=== PATIENT | male | born 1940 | race Caucasian/White ===

== ENCOUNTER 2016-05-18 07:38 | Day surgery (SDC) | payer OTHER ==
[2016-05-15 10:59] LABS: BASOPHILS 0.2 %; BASOPHILS ABSOLUTE 0.02 10/3/uL (0.0-0.16); EOSINOPHILS 1.1 %; EOSINOPHILS ABSOLUTE 0.09 10/3/uL (0.0-0.53); HEMATOCRIT 42.7 % (40.0-51.0); HEMOGLOBIN 13.9 g/dL (13.6-17.8); IMMATURE GRANULOCYTES 0.2 %; IMMATURE GRANULOCYTES ABSOLUTE 0.02 10/3/uL (0.0-0.11); LYMPHOCYTES 20.9 %; MEAN CORPUS HGB CONC 32.6 g/dL (32.0-36.0); MEAN CORPUSCULAR HEMOGLOB 32.7 pg (26.0-34.0); MEAN CORPUSCULAR VOLUME 100.5 fL (80-100); MEAN PLATELET VOLUME 9.2 fL (9.2-13.0); MONOCYTES 10.7 %; MONOCYTES ABSOLUTE 0.87 10/3/uL (0.21-1.20); NEUTROPHILS 66.9 %; NEUTROPHILS ABSOLUTE 5.44 10/3/uL (2.02-8.40); PLATELET COUNT 337 10/3/uL (150-400); RBC DISTRIBUTION WIDTH 12.1 % (12.0-16.0); RED CELL COUNT 4.25 10/6/uL (4.7-6.1); WHITE BLOOD CELLS 8.1 10/3/uL (4.5-10.5)
[2016-05-15 11:04] LABS: MANUAL DIFF NO %
[2016-05-15 11:05] LABS: PARTIAL THROMBO TIME 27.4 SEC (22.5-37.2)
[2016-05-15 11:07] LABS: INTERNATIONAL NORMAL RATI 1.1 UNITS (-); PROTIME (NOT ORD) 14.4 SEC (12.0-14.5)
[2016-05-15 11:13] LABS: BUN (BLOOD UREA NITROGEN) 9 MG/DL (6-23); CALCIUM, SERUM 8.5 MG/DL (8.5-10.4); CHLORIDE, SERUM 106 MMOL/L (96-112); CO2 (CARBON DIOXIDE) 27 MMOL/L (24-34); GFR AFRICAN AMERICAN 102 ML/MIN (>=60); GFR NON AFRICAN AMERICAN 88 ML/MIN (>=60); GLUCOSE, SERUM 114 MG/DL (60-99); POTASSIUM, SERUM 4.4 MMOL/L (3.5-5.3); SODIUM, SERUM 141 MMOL/L (135-148)
--- NOTE | ~2016-05-18 | OP ---
Record Of Operation [facility] [address] [place]. [address] NAME: ADRY RINALDI : 44 STATUS : [facility] PAT#: [id number] AGE: 76 ADM/REG DATE : 05/18/16 MR#: [id number] REPORT SERV DATE: 05/18/16 DICTATED BY: THIERNO WAGONER DATE: 05/18/16 REPORT STATUS : Draft TRANSCRIBED BY: MODL DATE: 05/18/16 DATE OF PROCEDURE: 05/18/2016 PREOPERATIVE DIAGNOSIS: Adenocarcinoma of the prostate, clinical stage T2b. OTHER DIAGNOSIS: Bladder outlet obstruction. PROCEDURES: 1. Cystoscopy GreenLight photo laser vaporization prostate. 2. Bilateral simple scrotal orchiectomies. SURGEON: Thierno Wagoner M.D. REHAB/PRE VOCATIONAL COUNSELOR: Milagro Jesus. ANESTHESIA: Spinal. BLOOD LOSS: 5 mL. FLUID REPLACEMENT: 900 mL. DRAINS: A 20-Swiss Wagoner catheter per urethra. INDICATIONS: A 76-year-old male with multiple comorbidities. He has worsening prostate cancer with a PSA rising up to approximately 19. He has worsening bladder outlet obstructive symptoms. He has been consented to the above procedures. TECHNIQUE: The patient was identified, brought to the operating room, administered spinal anesthetic agent by the Anesthesia Service. He was positioned into the dorsal lithotomy position. The lower abdomen, penis, groin, scrotum, and perineum were prepped and draped in usual sterile fashion. The 22-Swiss cystoscopic sheath with 30-degree lens was used for cystourethroscopy. The anterior bulbous urethra normal. The prostatic urethra was enlarged with lateral lobe, hypertrophy, and occlusion in the median ramp. Bladder was entered and surveyed. It is moderately trabeculated. Left and right ureteral orifices were normal in position, location, configuration. There were no urothelial lesions. The cystoscope removed. A 24-Swiss continuous-flow laser sheath was placed in the bladder with an obturator. The obturator was removed and a 30-degree lens and laser bridge was inserted. The GreenLight XPS laser fiber was then inserted. Starting at 100 andrade power cut a groove from the bladder neck back to the verumontanum at the 5 o'clock and at the 7 o'clock position. I then ablated lateral lobe tissue and floor of the prostate at 175 andrade. When this is ablated, power back down to 110 andrade and ablated some tissue anteriorly. No tissue distal to the verumontanum was ablated. The bladder was irrigated free of all debris and the scope was removed and a 20-Swiss Wagoner catheter was placed in the bladder. A 10 mL of sterile water were inflated in the catheter balloon and the bladder was irrigated clear. Record Of Operation [facility] [address] [place]. [address] NAME: ADRY RINALDI : 44 STATUS : [facility] PAT#: [id number] AGE: 76 ADM/REG DATE : 05/18/16 MR#: [id number] REPORT SERV DATE: 05/18/16 DICTATED BY: THIERNO WAGONER DATE: 05/18/16 REPORT STATUS : Draft TRANSCRIBED BY: AYANA DATE: 05/18/16 Midline scrotal incision was made with a 10-blade scalpel measuring approximately 5 cm. Then carried into the right hemiscrotum with the Bovie cautery. The tunica vaginalis was opened sharply and the right testis was delivered out of the wound. The spermatic cord was skeletonized. The right vas deferens was clamped proximally, transected distally, and then ligated with a 2-0 chromic ligature. The remainder of the spermatic cord was bisected, clamped proximally, and transected distally. A suture was placed in the right testis for marking. Then cauterized the stumps of the spermatic cord. Suture ligated each stump with 2-0 silk suture ligature. Fastidious hemostasis was achieved. I irrigated the right hemiscrotum and placed the stump back into the right hemiscrotum. Then carried the incision in to the left hemiscrotum performed the exact same procedure in exact same fashion. The left hemiscrotum was irrigated. I then closed dartos layer with running 3-0 Vicryl. I closed the skin with horizontal mattress sutures of 2-0 Chromic. Dressing of Xeroform gauze, fluff, and scrotal support was applied. The patient was then transferred to a [place] and taken to the recovery unit in stable and satisfactory condition. CHRIST/AYANA Thierno Wagoner M.D. / [id number] CC: Chelsea Dong D.O.
[~2016-05-18 07:38] MED LIST: ADVAIR250 INH; COMBIVENT RESPIM4 GM INH; PRIN20 PO; ZANTAC150 MG PO
== END 2016-05-18 13:44 | disposition home or self-care (01) ==
LOC: SDC 07:38
PROVIDERS: Urology
PROC: 0VBC0ZZ Excision of Bilateral Testes, Open Approach (ICD-10-PCS; principal; 2016-05-18 09:15)
PROC: 0V508ZZ Destruction of Prostate, Via Natural or Artificial Opening Endoscopic (ICD-10-PCS; 2016-05-18 09:15)
DX: N32.0 Bladder-neck obstruction (principal)
CPT/HCPCS: 80048; 85025; 85610; 85730; 88302; 93005; A9270-GY; J2250; J2370; J3010